=== PATIENT | female | born 1995 | race American Indian/Alaskan Native ===

== ENCOUNTER 2021-01-20 19:44 | Outpatient (CLI) | payer MEDICAID ==
[2021-01-20] MEDS ORDERED: LACTATED RINGERS 500 ML IV ONE (20:20)
[2021-01-20 20:23] VITALS: BP 119/80
[2021-01-20 21:10] LABS: Bilirubin,Urine NEG (Negative); Blood,Urine NEG (Negative); Color,Urine Yellow (Yellow); Mucus,Urine 3+ /HPF; Protein,Urine <15 mg/dL mg/dL (Negative); Urobilinogen,Urine < 2.0 mg/dL (<2.0)
[2021-01-20] MEDS ORDERED: ACETAMINOPHEN 500 MG TAB PO ONE (21:40)
--- NOTE | 2021-01-20 23:21 | Ultrasound Report ---
ULTRASOUND BIOPHYSICAL PROFILE INDICATION: well being. COMPARISON: None available. FINDINGS: breathing movement = 2 Gross body movement = 2 tone = 2 Qualitative amniotic fluid volume = 2 Total biophysical score = 8/8 Amniotic fluid index is 13 cm. Presentation is Cephalic. heart rate is 150 beats per minute. Cervix is closed measuring 3.1 cm. There is a fundal placenta. IMPRESSION: biophysical profile = 12/20 Amniotic fluid index is within normal limits at 13 cm. Signer Name: Alan Gray MD Signed: 01/20/2021 11:17 PM Workstation Name: [id number]
== END 2021-01-20 23:15 | disposition home or self-care (01) ==
LOC: TRG 19:44 → APU 19:45 → TRG 23:15
PROVIDERS: ATTEND Obstetrics & Gynecology
DX: Z34.93 Encounter for supervision of normal pregnancy, unspecified, third trimester (principal); Z3A.33 33 weeks gestation of pregnancy
CPT/HCPCS: 59025; 76815; 76819; 81001; 87086

== ENCOUNTER 2021-01-26 20:36 | Outpatient (CLI) | payer MEDICAID ==
[2021-01-26 21:59] VITALS: BP 127/78
[2021-01-26] MEDS ORDERED: LACTATED RINGERS 1,000 ML IV ONE (22:08)
== END 2021-01-26 23:40 | disposition home or self-care (01) ==
LOC: TRG 20:36 → APU 20:48 → TRG 23:40
PROVIDERS: ATTEND Student in an Organized Health Care Education/Training Program
DX: O42.90 Premature rupture of membranes, unspecified as to length of time between rupture and onset of labor, unspecified weeks of gestation (principal); Z3A.34 34 weeks gestation of pregnancy
CPT/HCPCS: 36415; 59025; 84112; 96360; J7120

== ENCOUNTER 2021-02-14 03:04 | Inpatient (IN) | payer MEDICAID ==
[2021-02-14] MEDS ORDERED: LACTATED RINGERS 2,000 ML ONE (03:50)
[2021-02-14] MEDS ORDERED: BICITRA ORAL LIQD 30ML PO ONE ×2 (04:07→04:10)
[2021-02-14] MEDS ORDERED: FAMOTIDINE 20 MG/2 ML INJ IV ONE (04:07)
[2021-02-14] MEDS ORDERED: METOCLOPRAMIDE 10 MG/2 ML INJ IV ONE (04:07)
[2021-02-14] MEDS ORDERED: ceFAZolin/Water 2 GM/20 ML 2 GM/20 ML SYRINGE IV ONE (04:08)
[2021-02-14] MEDS ORDERED: OXYTOCIN DRIP 30,000 MILLIUNITS/500 ML BAG IV ONE (04:09)
--- NOTE | 2021-02-14 04:19 | Anesthesia Consultation ---
Anesthesia Consult and Med Hx Date of service: 02/14/21 - Airway Anesthetic Teeth Evaluation: Good ROM Head & Neck: Adequate Mental/Hyoid Distance: Adequate Mallampati Class: Class II Intubation Access Assessment: Probably Good - Pulmonary Exam CTA: Yes - Cardiac Exam Cardiac Exam: RRR - Pre-Operative Health Status ASA Pre-Surgery Classification: ASA3, Emergency Proposed Anesthetic Plan: Spinal - Pulmonary Hx Asthma: No - Cardiovascular System Hx Hypertension: No Hx Cardia Arrhythmia: Yes (Tachycardia patient doesn't know what type. Noncompliant with medication) - Central Nervous System Hx Seizures: No Hx Psychiatric Problems: No - Endocrine Hx Renal Disease: No Hx Hypothyroidism: No Hx Hyperthyroidism: No - Hematic Hx Anemia: Yes Hx Sickle Cell Disease: No - Other Systems Hx Alcohol Use: No
--- NOTE | 2021-02-14 04:19 | Anesthesia Day of Surgery ---
Anesthesia Day of Surgery - Day of Surgery Patient Examined: Yes Patient H&P Reviewed: Yes Patient is NPO: No (meal 2 hours prior)
[2021-02-14] MEDS ORDERED: ceFAZolin/STERILE WATER 2 GM/20 ML SYRINGE IV ONE (04:20)
[2021-02-14 04:26] LABS: Hematocrit 33.4 % (30.3-42.9); Hemoglobin 10.7 gm/dl (10.1-14.3); Mean Corpuscular HGB Conc 32 % (30-34); Mean Corpuscular Volume 81 fl (79-97); Platelet Count 302 K/mm3 (140-440); Red Blood Count 4.12 M/mm3 (3.65-5.03); Red Cell Distribution Width 17.3 % (13.2-15.2)
[2021-02-14] MEDS ORDERED: SODIUM CHLORIDE 0.9% IRR 1,500 ML BOTTLE IR ONE (04:30)
[2021-02-14] MEDS ORDERED: WATER FOR IRRIG STERILE 1,500 ML BOTTLE IR ONE (04:30)
[2021-02-14] MEDS ORDERED: ONDANSETRON 4 MG/2 ML INJ ONE (04:42)
[2021-02-14] MEDS ORDERED: BUPIVACAINE/PF (0.5%) 5 MG/1 ML 30 ML VIAL INFILTRATI ONE (04:42)
[2021-02-14] MEDS ORDERED: LIDOCAINE MPF (2%) 20 MG/1 ML VIAL 5 ML ONE (04:42)
[2021-02-14] MEDS ORDERED: PHENYLEPHRINE/NS 1,000 MCG/10 ML SYRINGE (OR USE) IV ONE (04:42)
[2021-02-14] MEDS ORDERED: BUPIVACAINE /DEX-WATER 0.75% (2 ML) AMPULE INFILTRATI ONE (04:43)
[2021-02-14] MEDS ORDERED: dexAMETHasone 20 MG/5 ML VIAL ONE (04:43)
[2021-02-14] MEDS ORDERED: LACTATED RINGERS 1,000 ML ONE (04:46)
[2021-02-14] MEDS ORDERED: FAMOTIDINE 20 MG/2 ML INJ IV NR (05:00)
[2021-02-14] MEDS ORDERED: METOCLOPRAMIDE 10 MG/2 ML INJ IV NR (05:00)
[2021-02-14] MEDS ORDERED: KETOROLAC 30 MG/1 ML INJ ONE (05:04)
--- NOTE | 2021-02-14 05:35 | Post Operative Note ---
Pre-op diagnosis: IUP at 37w2d, Cat 3 Heart tracing Post-op diagnosis: same Findings: Viable 2220g male APGARs 8/9. Uterine outline, bilateral fallopian tubes, and ovaries normal in appearance. Procedure: Stat Primary Low Transverse Section Anesthesia: spinal Surgeon: YASEMIN MCCOY Estimated blood loss: other (QBL 317) Pathology: list (Placenta) Specimen disposition: to lab Condition: stable Disposition: PACU
[2021-02-14] MEDS ORDERED: MORPHINE 4 MG/1 ML INJ IV PRN (05:40)
[2021-02-14] MEDS ORDERED: NALOXONE 0.4 MG/1 ML INJ IV PRN (05:40)
[2021-02-14] MEDS ORDERED: SIMETHICONE 80 MG CHEW TAB PO PRN (05:40)
[2021-02-14] MEDS ORDERED: oxyCODONE /ACETAMINOPHEN 5-325MG TAB PO PRN (05:40)
[2021-02-14] MEDS ORDERED: ONDANSETRON 4 MG/2 ML INJ IV PRN (05:40)
[2021-02-14] MEDS ORDERED: LANOLIN/ZINC/DIMETHICONE (LANSINOH) 7 GM TP PRN (05:40)
[2021-02-14] MEDS ORDERED: WITCH HAZEL/ GLYCERIN PAD TP PRN (05:40)
--- NOTE | 2021-02-14 05:59 | History and Physical Report ---
History of Present Illness Date of examination: 02/14/21 Date of admission: 02/14/21 04:07 Chief complaint: Contractions History of present illness: Late entry: Patient is a at 37w2d who presented to triage with contractions. Notes they were occurring every 2-3 minutes for 45 minutes. Denies aginal bleeding and leakage of fluid. Endorsed movement. Patient placed on heart monitor and noted to have minimal to absent variability and repetitive late decelerations. Stat C/S called for Cat 3 FHT and patient to OR for delivery. See operative report for additional details. Past History Past Medical History: other ("leaky heart valve"- Did not follow with cardiology) Past Surgical History: no surgical history Family/Genetic History: none Social history: no significant social history - Obstetrical History Expected Date of Delivery: 03/05/21 Actual Gestation: 37 Week(s) 2 Day(s) : 1 Para: 0 Hx # Term Pregnancies: 0 Number of Pregnancies: 0 Spontaneous Abortions: 0 Induced : 0 Number of Living Children: 0 Medications and Allergies Allergies Allergy/AdvReac Type Severity Reaction Status Date / Time No Known Allergies Allergy Unverified 01/20/21 20:20 Home Medications Medication Instructions Recorded Confirmed Last Taken Type Terconazole [Terazol 7 Vag Cream] 1 applicator VG QHS #3 cream.appl 01/26/21 Unknown Rx Active Meds: Active Medications Famotidine (Famotidine 20 Mg/2 Ml Inj) 20 mg IV PREOP NR Stop: 02/14/21 23:45 Ferrous Sulfate (Ferrous Sulfate 325 Mg Tab) 325 mg PO QDAY JACQUELINE Lactated Ringer's (Lactated Ringers) 1,000 mls @ 2,250 mls/hr IV PREOP JACQUELINE Stop: 02/15/21 04:42 Oxytocin/Sodium Chloride (Pitocin/Ns 30 Unit/500ml) 30 units in 500 mls @ 40 mls/hr IV TITR JACQUELINE; Protocol Ibuprofen (Ibuprofen 800 Mg Tab) 800 mg PO Q6H JACQUELINE Ketorolac Tromethamine (Ketorolac 30 Mg/1 Ml Inj) 15 mg IV Q6H JACQUELINE Stop: 02/14/21 23:01 Metoclopramide HCl (Metoclopramide 10 Mg/2 Ml Inj) 10 mg IV PREOP NR Stop: 02/14/21 23:45 Morphine Sulfate (Morphine 4 Mg/1 Ml Inj) 4 mg IV Q4H PRN PRN Reason: Pain , Severe (7-10) Multi-Ingredient Ointment (Lanolin/Zinc/Dimethicone (Lansinoh) 7 Gm) 1 applic TP PRN PRN PRN Reason: dryness/cracking Multivitamins/Iron/Calcium ( [id number]-Sr Fumarate-Folic Acid Vit Tab) 1 each PO QDAY JACQUELINE Naloxone HCl (Naloxone 0.4 Mg/1 Ml Inj) 0.1 mg IV Q2MIN PRN PRN Reason: Res Rate </= 8 or 02 SAT < 92% Ondansetron HCl (Ondansetron 4 Mg/2 Ml Inj) 4 mg IV Q8H PRN PRN Reason: Nausea And Vomiting Oxycodone/Acetaminophen (Oxycodone /Acetaminophen 5-325mg Tab) 1 tab PO Q6H PRN PRN Reason: Pain, Moderate (4-6) Simethicone (Simethicone 80 Mg Chew Tab) 80 mg PO Q6H PRN PRN Reason: Gas pain Sodium Chloride (Sodium Chloride 0.9% 10 Ml Flush Syringe) 10 ml IV PRN NR Witch Lizzy/Glycerin (Witch Lizzy/ Glycerin Pad) 1 each TP PRN PRN PRN Reason: Hemorrhoids/cleansing/soothing Review of Systems All systems: negative Genitourinary: contractions - Vital Signs Vital signs: Vital Signs Pulse BP 108 H 135/84 02/14/21 03:36 02/14/21 03:36 Temp Pulse Resp BP Pulse Ox 108 H 135/84 02/14/21 03:36 02/14/21 03:36 - Physical Exam Breasts: Positive: deferred Abdomen: Positive: other (Gravid) - Obstetrical FHR: category 3 Uterine Contraction Monitor Mode: Palpation Results Result Diagrams: 02/14/21 03:54 Abnormal lab results 02/14/21 Range/Units 03:54 WBC 15.4 H (4.5-11.0) K/mm3 MCH 26 L (28-32) pg RDW 17.3 H (13.2-15.2) % All other labs normal. Assessment and Plan - Patient Problems (1) Category III heart rate tracing during maternal care in third trimester Onset Date: ~02/14/21 Current Visit: Yes Status: Acute Plan to address problem: -s/p Stat PLTC (2) delivery delivered Onset Date: ~02/14/21 Current Visit: Yes Status: Acute Plan to address problem: -Admit to Mother/Baby -Orders placed - Ancef q8 for 24 hours for Betadine splash - Toradol q6 for 24 hrs with ibuprofen to follow. Percocet q6 PRN. Morphine 4 mg for severe pain (3) Rh negative status during , third trimester, single gestation Onset Date: ~02/14/21 Current Visit: Yes Status: Chronic Plan to address problem: -Rhogam Workup ordered
[2021-02-14] MEDS ORDERED: OXYTOCIN DRIP 30 UNITS/500 ML BAG IV SCH (06:00)
--- NOTE | 2021-02-14 06:21 | XRay Report ---
Abdomen single view INDICATION: Abdominal pain. Instrument count IMPRESSION: Limited view of the lower abdomen. No radiopaque instruments identified in the region of the pelvis. Signer Name: Silver Starkey MD Signed: 02/14/2021 6:16 AM Workstation Name: [id number]
[2021-02-14] MEDS: LACTATED RINGERS 1,000 ML IV SCH ×2 (06:46→16:41)
--- NOTE | 2021-02-14 07:48 | Progress Note ---
Assessment and Plan Pt denies complaints at this time. Expresses gratitude for care. POC d/w pt. Questions encouraged. No questions verbalized. Pt verbalizes understanding and agrees to POC. Continue postoperative pathway. - Patient Problems (1) delivery delivered Onset Date: ~02/14/21 Current Visit: Yes Status: Acute Subjective - Subjective Date of service: 02/14/21 Principal diagnosis: term IUP delivered, POD #0 Patient reports: pain well controlled, other (everett draining adequate amount of clear yellow urine to gravity) [place]: doing well Objective - Vital Signs Latest vital signs: Vital Signs Temp Pulse Resp BP Pulse Ox 02/14/21 06:50 100 H 21 113/59 100 02/14/21 06:40 99 H 23 106/66 100 02/14/21 06:30 102 H 22 106/56 100 02/14/21 06:20 103 H 14 122/85 98 02/14/21 06:10 104 H 11 L 117/68 100 02/14/21 05:55 102 H 17 124/49 100 02/14/21 05:50 106 H 21 109/64 97 02/14/21 05:45 99 H 21 126/60 100 02/14/21 05:40 98.1 F 97 H 12 109/67 99 02/14/21 05:36 98.1 F 97 H 12 112/63 100 02/14/21 03:36 108 H 135/84 Intake and Output 02/13/21 02/13/21 02/14/21 15:59 23:59 07:59 Intake Total 1900 Output Total 1850 Balance 50 Intake: IV 1900 Output: Urine 1850 Uretheral ([place]) 1150 Other: Weight 135 lb Estimated Blood Loss 317 Patient Weight 02/14/21 23:59 Weight 135 lb - Exam Breasts: Present: normal Cardiovascular: Present: Regular rate Lungs: Present: Normal air movement Abdomen: Present: normal appearance, soft Vulva: both: normal Uterus: Present: normal, firm Extremities: Present: normal Incision: Present: normal, dry, intact, dressed - Labs Labs: Abnormal lab results 02/14/21 Range/Units 03:54 WBC 15.4 H (4.5-11.0) K/mm3 MCH 26 L (28-32) pg RDW 17.3 H (13.2-15.2) %
[2021-02-14] MEDS: KETOROLAC 30 MG/1 ML INJ IV SCH ×3 (10:48→22:52)
[2021-02-14] MEDS: PRENATAL VIT27-FE FUMARATE-FOLIC ACID VIT TAB PO SCH (10:48)
[2021-02-14] MEDS: FERROUS SULFATE 325 MG TAB PO SCH (10:48)
--- NOTE | 2021-02-14 15:54 | Post Anesthesia Evaluation ---
- Post Anesthesia Evaluation Patient Participated: Yes Airway Patent: Yes Stable Respiratory Function: Yes Nausea/Vomiting: No Temp > 96.8F: Yes Pain Manageable: Yes Adequeate Hydration: Yes Anesthesia Complications: No Block Receding Appropriately: Yes
--- NOTE | 2021-02-14 16:23 | Operative Report ---
Operative Report Operative Report: Operative Report: Date of Procedure: 02/14/2021 Preoperative diagnosis: IUP @ 37w2d weeks, Category 3 FHT Postoperative diagnosis: same, s/p stat PLTCS Procedure: Stat Primary Low Transverse Section Surgeon: Ashley Cordova MD Anesthesia: spinal Complications: none QBL: 317 ml IV Fluids: 1500 ml UOP: 800 ml, clear urine at the end of procedure Indications: Category 3 FHT Findings: 2220 g male in ROBERTA position cephalic presentation with Apgars 8 & 9 Amniotic fluid clear Uterus normal in appearance Fallopian tubes normal in appearance Ovaries Normal in appearance Procedure: Stat C/S called secondary to Cat 3 FHT. The patient was taken to the operating room and spinal anesthesia placed. She was then splashed with betadine and draped in the usual sterile fashion in the dorsal supine position with a leftward tilt. 2 g Ancef was given prior to the procedure. A Pfannenstiel skin incision was made with the scalpel and carried through the fascia. The rectus muscles were then in the midline, and the peritoneum identified, tented up and entered bluntly. The peritoneal incision was then extended superiorly and inferiorly with good visualization of the bladder. The bladder blade was then inserted The bladder blade was then reinserted and the lower uterine segment incised in a transverse fashion with the scalpel. The uterine incision was then extended laterally digitally. The bladder blade was then removed and the infant was delivered. The nose and mouth were suctioned with the bulb suction and the cord clamped and cut. The was handed off to the waiting pediatric team. The placenta was then removed; the uterus exteriorized and cleared of all clots and debris. The uterine incision was repaired with 0 vicryl in a running locked fashion to obtain excellent hemostasis. An imbrication layer with 0 vicryl done given excellent hemostasis. Uterus returned to the abdomen. The Peritoneum closed with 2-0 vicryl. A figure of eight stitch of 2-0 Vicryl was placed to reapproximate the rectus muscle. The fascia was reapproximated with 0 vicryl in a running fashion. Subcutaneous layer reapproximated with interrupted sutures of 2-0 vicryl. The skin was closed with 4-0 monocryl in a subcuticular fashion and the incision sealed with Steri- strips.The patient tolerated the procedure well. Sponge, lap, needle counts correct X 3. Xray was completed and noted to be clear and within normal limits, The patient was taken to the recovery room in a stable condition.
--- NOTE | 2021-02-14 16:26 | Progress Note ---
Spinal Anesthesia Block - Spinal Anesthesia Block Start Time: :22 Stop Time: :23 Performed by:: MURRAY CAUSEY Procedure: Sitting, sterile chlorahexadine 0.5% prep/drape, 1% lidocaine skin local, 25G spinal needle + introducer at L3-4, + CSF, - Heme, [1.4 ml 0.75% bupivacaine + 10 mcg dexmedetomidine] injected, drape removed, patient positioned supine with left uterine displacement, and spinal level verified to be adequate prior to surgery
[2021-02-14 18:45] LABS: Hematocrit 28.2 % (30.3-42.9); Hemoglobin 8.7 gm/dl (10.1-14.3)
--- NOTE | 2021-02-15 08:48 | Progress Note ---
Assessment and Plan 25yo 1 Day postop S/P . Advance activity as tolerated, keep incision clean and dry, and manage pain. Reassess PRN. Lochia Scant, Fundus firm, H&H 8.7/28.2, asymptomatic anemia d/t acute bloodloss - Patient Problems (1) delivery delivered Onset Date: ~02/14/21 Current Visit: Yes Status: Acute (2) Anemia associated with acute blood loss Current Visit: Yes Status: Acute Plan to address problem: PO FE Bid Subjective - Subjective Date of service: 02/15/21 Principal diagnosis: term IUP delivered, POD #0 Patient reports: appetite normal, voiding normally, ambulating normally [place]: doing well Objective - Vital Signs Latest vital signs: Vital Signs Temp Pulse Resp BP Pulse Ox Pulse Ox 02/15/21 05:10 97.7 F 96 H 18 107/62 98 02/15/21 01:07 98.1 F 86 18 118/57 99 02/14/21 22:52 12 02/14/21 20:48 98.5 F 95 H 18 117/64 99 02/14/21 20:40 98 02/14/21 17:35 97.7 F 94 H 18 113/55 97 Intake and Output 02/14/21 02/15/21 02/15/21 23:59 07:59 15:59 Intake Total 260 240 Output Total 201 1300 Balance 59 -1060 Intake: Intake, Free Water 260 240 Output: Urine 201 1300 Void 201 1300 Other: Total, Output Amount 200 500 # Voids Indwelling Catheter 300 Void 100 - Exam Breasts: Present: normal Lungs: Present: Normal air movement Abdomen: Present: normal appearance, soft Uterus: Present: normal, firm, fundal height at umbilicus Extremities: Present: normal Incision: Present: normal, dry, intact, dressed (Clean, dry, intact) - Labs Labs: Abnormal lab results 02/14/21 Range/Units 18:23 Hgb 8.7 L (10.1-14.3) gm/dl Hct 28.2 L (30.3-42.9) %
[2021-02-15] MEDS: PRENATAL VIT27-FE FUMARATE-FOLIC ACID VIT TAB PO SCH (10:30)
[2021-02-15] MEDS: FERROUS SULFATE 325 MG TAB PO SCH (10:30)
[2021-02-15] MEDS: IBUPROFEN 800 MG TAB PO SCH ×2 (18:36→23:17)
[2021-02-16] MEDS: IBUPROFEN 800 MG TAB PO SCH ×2 (05:56→12:35)
--- NOTE | 2021-02-16 08:47 | Discharge Summary ---
Providers - Providers Date of Admission: 02/14/21 04:07 Date of discharge: 02/16/21 (desires d/c home today) Attending physician: YASEMIN MCCOY MD Primary care physician: YASEMIN MCCOY MD Hospitalization Reason for admission: Labor Condition: Good Pertinent studies: psotop H&H 8.7/28.2, asymptomatic anemia d/t acute blood loss Procedures: primary c/s Hospital course: uncomplicated c/s and postop course Disposition: 01 HOME / SELF CARE / HOMELESS Final Discharge Diagnosis (Prints w/discharge instructions): post op c/s Time spent for discharge: 15 - Discharge Diagnoses (1) delivery delivered Status: Acute (2) Anemia associated with acute blood loss Status: Acute Core Measure Documentation - Palliative Care Palliative Care/ Comfort Measures: Not Applicable - Core Measures Any of the following diagnoses?: none Exam - Constitutional Vitals: Temp Pulse Resp BP Pulse Ox 98.3 F 94 H 18 123/77 98 02/15/21 23:42 02/15/21 23:42 02/15/21 23:42 02/15/21 23:42 02/16/21 05:53 General appearance: Present: no acute distress, well-nourished - EENT Eyes: Present: PERRL ENT: hearing intact, clear oral mucosa - Neck Neck: Present: supple, normal ROM - Respiratory Respiratory effort: normal Respiratory: bilateral: CTA - Cardiovascular Rhythm: regular Heart Sounds: Absent: rub, click - Extremities Extremities: No edema Peripheral Pulses: within normal limits - Abdominal General gastrointestinal: Present: soft, non-tender, non-distended, normal bowel sounds Female genitourinary: Present: normal - Integumentary Integumentary: Present: clear, warm, dry - Musculoskeletal Musculoskeletal: gait normal, strength equal bilaterally - Psychiatric Psychiatric: appropriate mood/affect, intact judgment & insight - Neurologic Neurologic: CNII-XII intact, moves all extremities - Additional findings Additional findings: bottle feeding, lochia scant, fundus firm, incision D&I Plan Activity: advance as tolerated Diet: regular Wound: open to air, keep clean and dry Follow up with: YASEMIN MCCOY MD [Primary Care Provider] - 7 Days (Congratulations! Please call [phone] to schedule your incision check and your son's circumcision in 1 week. Bring EMLA cream to your son's appointment and wait for instructions. Call office for any questions or concerns,) Prescriptions: Docusate Sodium [Colace] 100 mg PO BID #60 capsule Lidocain2.5%/Prilocai2.5% [Emla] 1 applic TP ONCE #1 tube Ferrous Sulfate [Feosol 325 MG tab] 325 mg PO QDAY #30 tablet Ibuprofen [Motrin 800 MG tab] 800 mg PO Q8HR #30 tablet oxyCODONE /ACETAMINOPHEN [Percocet 5/325] 1 tab PO Q6HR PRN #20 tablet PRN Reason: Pain
[2021-02-16 08:50] VITALS: BP 114/77
[2021-02-16] MEDS: FERROUS SULFATE 325 MG TAB PO SCH (10:10)
[2021-02-16] MEDS: PRENATAL VIT27-FE FUMARATE-FOLIC ACID VIT TAB PO SCH (10:10)
[2021-02-16] MEDS ORDERED: medroxyPROGESTERone ACETATE 150 MG/ML SYRINGE IM NR (11:00)
== END 2021-02-16 15:17 | disposition home or self-care (01) | DRG 765 ==
LOC: TRG 03:04 → APU 03:05 → TRG 04:07 → APU 04:07 → OB 07:51
PROVIDERS: ADMIT Student in an Organized Health Care Education/Training Program; ATTEND Student in an Organized Health Care Education/Training Program
PROC: 10D00Z1 Extraction of Products of Conception, Low, Open Approach (ICD-10-PCS; principal; 2021-02-14)
DX: O76 Abnormality in fetal heart rate and rhythm complicating labor and delivery (principal); D62 Acute posthemorrhagic anemia; O75.0 Maternal distress during labor and delivery; O90.81 Anemia of the puerperium; Z20.822 Contact with and (suspected) exposure to COVID-19; O26.893 Other specified pregnancy related conditions, third trimester; Z3A.37 37 weeks gestation of pregnancy; Z37.0 Single live birth; Z67.11 Type A blood, Rh negative
CPT/HCPCS: 36415; 74018; 85014; 85018; 85027; 86592; 86850; 86870; 86900; 86901; 88307; 99211; G0378; G0463; J0690; J1050; J1100; J1885; J2370; J2405; J2765; J3490; J7120; U0003